=== PATIENT | female | born 1990 | race Caucasian/White ===

== ENCOUNTER 2018-12-09 02:15 | Inpatient (IN) | payer OTHER, SELFPAY ==
[2018-12-09 02:46] VITALS: BMI 40.4
[2018-12-09] MEDS: Lactated Ringers 500 ML 999 ML IV (02:50)
[2018-12-09 03:01] LABS: Absolute Lymphocyte Count 2.98 X10^3/uL (0.83-4.51); Basophil# 0.11 X10^3/uL; Basophil% 0.6 % (0-1); Eosinophil# 0.19 X10^3/uL; Eosinophils% 1.1 % (0-5); Hematocrit 39.2 % (37-47); Hemoglobin 13.3 g/dL (12.0-15.0); Lymphocyte # 2.98 X10^3/ul (4.0); Lymphocyte % 16.5 % (19-41); Mean Corp Hgb Conc 33.9 g/dL (32-36); Mean Corpuscular Hgb 29.6 pg (27.0-32.0); Mean Corpuscular Volume 87.1 fL (81-99); Mean Platelet Vol. 9.6 fl (6.2-12.0); Monocyte# 1.41 X10^3/uL; Monocyte% 7.8 % (0-10); NRBC Flagged by Analyzer 0 % (0-5); Neutrophil % 72.1 % (47-70); Platelet Count 369 K/mm3 (150-450); RBC Distribution Width CV 12.8 % (11.6-14.6); RBC Distribution Width SD 40.4 fl (35.1-43.9)
[2018-12-09] MEDS: Lactated Ringers 1,000 ML 200 ML IV (03:30)
[2018-12-09] MEDS: fentaNYL-bupivacaine (epidural) 100 ML BAG EPIDURAL (03:30)
--- NOTE | 2018-12-09 03:44 | PCM.HP.OB ---
History Date of Admission: 12/09/18 Final NITIN: 12/05/18 Final NITIN Source: LMP Gestational age: 40 Weeks and 4 Days History of this : This is a 28 year-old, G [], P [], at 40 weeks gestational age. Allergies No Known Allergies Allergy (Verified 12/31/15 03:57) Home Medications: Home Medications Vit Calc,Iron,Folic [ Vitamins] 1 each PO DAILY 12/19/15 Smoking Status: Former smoker Alcohol: None Number of Fetus(es): 1 NST - FHR Rate Baby A Baseline: 135 Variability:: Moderate Decelerations:: Variable NST Reactive:: Yes Uterine Activity:: Q2-3 min History Past Pregnancies: Past Pregnancies Delivery Date Name GA/Weeks Outcome Route Weight Gender Labor Length Anesthesia Delivery Location Provider FOB Labs: See [facility] H&P Physical Exam General: Alert, Oriented x3 Abdomen: Soft, Non Tender, Non-Distended, Gravid Extremities:: No tenderness/swelling Neurological: Cranial nerves II-XII grossly intact [employer]: Normal external genitalia Estimated gestational size: Appropriate for gestational size Presentation: Cephalic Cervix Dilation (cm): 10 - AROM clear fluid Station: 0 Effacement (%): 100 Assessment/Plan This is a 28 year-old, G2, P1001, at 40&4 weeks gestational age in labor. Admit to L&D Expectant management & will start pushing soon GBS negative Pain - comfortable with epidural EFW - less than 4500g, patient with adequate pelvis (EFW by US on 11/23/18 was 3536g)
[2018-12-09] MEDS: Oxytocin 30 units/NS 500 ml 30 UNITS/500 ML IV.SOLN 334 UNITS IV (04:47)
--- NOTE | 2018-12-09 05:00 | PCM.OPRPT ---
Vaginal Delivery Maternal Presentation: Active Labor Amniotic Membrane Rupture Type: Artificial Amniotic Fluid Description: Clear Final NITIN: 12/05/18 Gestational age: 40 Weeks and 4 Days Date of Procedure: 12/09/18 Pre-Operative Diagnosis: Labor Post-Operative Diagnosis: Labor Surgery/ Procedure Performed: Spontaneous Vaginal Delivery Type of Anesthesia: Epidural Description of Procedure: Patient prepped & draped in stirrups when C/C/+2. She pushed to deliver head. head gently guided to allow delivery of anterior & posterior shoulders. No excess traction placed on head. Body delivered & placed on maternal abdomen. 3VC clamped & cut after 3 minute delay. Placenta delivered with gentle traction. Good uterine tone obtained. Presentation: ASHLEY Placental Delivery Description: Expressed Placenta Disposition: [facility] Cord Vessel Description: 3 Vessels Cord Entanglement: None Estimated Blood Loss: 300ml A gender: Female (1 minute): 8 (5 minute): 9 Episiotomy Description: None Laceration: 1st degree - vaginal - repaired with 3-0 vicryl Medications given after delivery: IV Pitocin Complications: None
[2018-12-09 07:13] VITALS: BP 130/79; PULSE 76; RESP 18; TEMP 36.3
[2018-12-09 13:30] VITALS: BP 116/76; PULSE 79; RESP 20; TEMP 36.6
[2018-12-09 15:38] VITALS: BP 124/80; PULSE 64; RESP 18; TEMP 36.6
[2018-12-09] MEDS: Ibuprofen 600 MG Tablet PO (15:42)
[2018-12-09 21:10] VITALS: BP 134/86; PULSE 88; RESP 16; TEMP 36.4
[2018-12-10 01:12] VITALS: BP 112/63; PULSE 78; RESP 18; TEMP 36.7
[2018-12-10 04:35] VITALS: BP 119/68; PULSE 83; RESP 16; TEMP 36.5
[2018-12-10 07:45] VITALS: BP 133/87; PULSE 89; RESP 16; TEMP 36.4; O2SAT 97
--- NOTE | 2018-12-10 09:29 | PCM.PN.OB ---
Subjective: Pt doing well. . Pain controlled. Normal lochia. No lightheadedness, CP, SOB, leg pain, difficulty with urination. She feels ready to go home today. - Physical Exam Vitals/I&O's: Vital Signs Temp Pulse Resp BP Pulse Ox 97.6 F L 89 16 133/87 H 97 12/10/18 07:45 12/10/18 07:45 12/10/18 07:45 12/10/18 07:45 12/10/18 07:45 Oxygen Delivery Method Room Air Weight: 250 lb 7.122 oz Body Mass Index (BMI) 40.4 Intake and Output for Last 24 Hours 12/08/18 12/09/18 12/10/18 23:59 23:59 23:59 Intake Total 1956.67 / 1956.67 Output Total 1400 / 1400 Balance 556.67 / 556.67 General: Alert HEENT: Atraumatic Lungs: Normal air movement Abdomen: Soft Extremities: No edema, No Calf Tenderness Skin: No rashes Neurological: Neuro grossly intact Psych/Mental Status: Normal Affect, Appropriate Laboratory Results 12/09/18 11:05: Screen NEGATIVE, Baby's Blood Type AB POSITIVE, Baby's ARNOLD NEGATIVE Current Medications Acetaminophen (Tylenol) 1,000 mg PO Q8H PRN PRN PRN Reason: Pain Score 1-3/10 Bisacodyl (Dulcolax) 10 mg RECTAL UD PRN PRN Reason: If no BM Dibucaine (Dibucaine) 1 applic TOPICAL TID PRN PRN; Protocol PRN Reason: Discomfort Hydrocortisone (Hytone) 1 applic TOPICAL TID PRN PRN; Protocol PRN Reason: Discomfort Ibuprofen (Motrin) 600 mg PO Q6H PRN PRN PRN Reason: Pain Score 1-3/10 Last Admin: 12/09/18 15:42 Dose: 600 mg Documented by: Methylergonovine Maleate (Methergine) 0.2 mg IM X1 PRN PRN Reason: Excess bleeding/uterine atony Ondansetron HCl (Zofran) 4 mg IV Q4H PRN PRN PRN Reason: Nausea Oxycodone HCl (Oxyir) 5 - 10 mg PO Q4H PRN PRN PRN Reason: Pain Score 4-10/10 Senna/Docusate Sodium (Senokot-S, Maira-Colace) 1 - 2 tablet PO DAILY PRN PRN PRN Reason: Constipation Simethicone (Mylicon) 80 mg PO PCHS PRN PRN Reason: Indigestion/Stomach pain Sodium Chloride () 5 - 15 ml IV UD PRN PRN Reason: SALINE FLUSH Medical Necessity - Tobacco Use Smoking Status: Former smoker Assessment/Plan PPD#1 s/p - Pt and baby doing well - - Pt desires discharge to home today
--- NOTE | 2018-12-10 09:31 | DCINST_ITS ---
Discharge Diet: No Restrictions Discharge Activity: Return to Normal Activity, May Drive, May Shower, May Take a Tub Bath May resume sexual activity in: 6 weeks Weight Bearing Status: Weight bearing as tolerated Lifting Restrictions: None Call your doctor if you observe: Fever of 101 or Higher, Inability to urinate, Inability to have a bowel movement, Using more than one pad per hour, Shortness of breath, Dizziness, Chest pain, Increased palpitations (irregular heartbeat), Calf discomfort, Uncontrolled pain Additional Instructions: If you experience any of the following, contact your healthcare provider. * Bleeding that soaks a pad every hour for 2 hours * Fever 100.4 or higher * Unrelieved incision or abdominal pain * Swelling, redness, discharge or bleeding from your incision or episiotomy site * Your incision begins to separate * Problems urinating (including inability to urinate or burning while urinating). * Visual changes * Severe headache * Flu-like symptoms * Pain or redness in one of both of your breasts * Pain, warmth, tenderness or swelling in your legs, especially the calf area * Frequent nausea and vomiting * Symptoms of depression or anxiety If you experience any of the following, call 911 or go to the nearest Emergency Room. * Chest pain * Problems breathing * Seizure activity * Partial or complete paralysis of a body part, slurred speech, weakness or drooping of the face, or a sudden inability to walk or hold your balance Allergies/Adverse Reactions: Allergies No Known Allergies Allergy (Verified 12/31/15 03:57) Medications to take at Discharge Vit Calc,Iron,Folic [ Vitamins] 1 each PO DAILY 12/19/15 When: 6 weeks for visit. You may also follow up in 1-2 weeks if you desire Primary Care Physician: Sang Hamilton DO [Primary Care Provider] - Test Results: Test results from this visit will be discussed in further detail at your follow- up appointment, if applicable.
== END 2018-12-10 10:30 | disposition home or self-care (01) | DRG 807 ==
PROVIDERS: Admitting Provider Obstetrics & Gynecology; Family Provider Preventive Medicine Occupational Medicine; PCP Preventive Medicine Occupational Medicine; Referring Provider Obstetrics & Gynecology; Visit Provider Obstetrics & Gynecology
DX: O99.214 Obesity complicating childbirth (principal); Z37.0 Single live birth; E66.01 Morbid (severe) obesity due to excess calories; O70.0 First degree perineal laceration during delivery; Z87.891 Personal history of nicotine dependence; Z3A.40 40 weeks gestation of pregnancy
CPT/HCPCS: 59025; 85025; 85461; 86850; 86900; 86901; 90384; 99218; J7120; G0378; J2790

== ENCOUNTER 2020-06-05 07:58 | Outpatient (RCR) | payer BC, SELFPAY ==
[2020-06-05] MEDS: COVID-19 VACC, MRNA(PFIZER)/PF 30 MCG/0.3 ML SYRINGE IM (13:32)
[2020-06-26] MEDS: COVID-19 VACC, MRNA(PFIZER)/PF 30 MCG/0.3 ML SYRINGE IM (13:01)
== END 2020-07-23 23:59 ==
LOC: IMMUN 07:58
PROVIDERS: PCP Preventive Medicine Occupational Medicine; Referring Provider Family Medicine; Visit Provider Family Medicine
DX: Z23 Encounter for immunization (principal)
CPT/HCPCS: 0001A; 0002A; 91300